=== PATIENT | male | born 1940 | race Caucasian/White ===

== ENCOUNTER 2016-05-24 07:18 | Day surgery (SDC) ==
[2016-05-18 14:41] LABS: HEMATOCRIT 34.6 % (42.0-52.0); HEMOGLOBIN 11.5 g/dL (14.0-18.0); MCH 31.4 PG (27-31); MCHC 33.2 g/dL (33-37); MCV 94.5 FL (81-99); MPV 11.5 FL (7.4-10.4); RBC 3.66 XMIL (4.7-6.1)
[2016-05-18 14:59] LABS: CALCIUM 8.6 mg/dL (8.8-10.2); POTASSIUM 3.9 mmol/L (3.5-5.1)
[2016-05-24] MEDS ORDERED: PEPCID ONE (07:35)
[2016-05-24] MEDS ORDERED: KEFZOL 1 GM/D5W 50 ML ONE (07:35)
[2016-05-24] MEDS ORDERED: REGLAN ONE (07:35)
[2016-05-24] MEDS ORDERED: LR 1,000 ML ONE (07:35)
[2016-05-24] MEDS ORDERED: NEOSPORIN G.U. IRRIGANT ONE (08:38)
[2016-05-24] MEDS ORDERED: FENTANYL ONE (09:59)
[2016-05-24] MEDS ORDERED: DIPRIVAN 1% ONE (10:00)
[2016-05-24] MEDS ORDERED: MORPHINE ONE ×2 (10:04→10:09)
[2016-05-24] MEDS ORDERED: NORCO-10 ONE (10:31)
[2016-05-24 10:52] VITALS: BP 161/86
[2016-05-24] MEDS ORDERED: XYLOCAINE-MPF 2% ONE (11:01)
--- NOTE | 2016-05-24 11:15 | OPERATIVE NOTE ---
PROCEDURE DATE: 05/24/2016 POSTOPERATIVE DIAGNOSIS: History of stage T1 urothelial carcinoma and renal insufficiency. POSTOPERATIVE DIAGNOSES: 1. History of stage T1 urothelial carcinoma and renal insufficiency. 2. Bilateral distal ureteral strictures. PROCEDURE PERFORMED: Cystoscopic exam, bilateral retrograde ureteropyelograms, placement of bilateral double-J stents, cold cup biopsies of the bladder, and transurethral resection of the bladder tumor site (about 3 cm in diameter). SURGEON: Alexsander Shepard MD ANESTHESIA: General via laryngeal mask. FINDINGS: Cystoscopic exam: Urethra--greater than 21 Icelandic, without stricture. Prostate-- coapting lateral lobes, elevated bladder neck, length approximately 4.5 cm. Bladder--normal ureteral orifices bilaterally. The previously resected tumor site was noted. There was thin, friable mucosa overlying the previously resected site. There was a red area on the right upper posterior wall. Left retrograde ureteropyelogram--distal ureteral stricture with significant hydroureteronephrosis proximal to this. No other filling defects. The strictured area was just above the ureterovesical junction and was extrinsic. Right side, right distal ureteral stricture just above the ureterovesical junction. There were no filling defects proximal to this, but there was significant hydroureteronephrosis. His bilateral retrograde pyelograms were normal in March 2016. Rectal exam reveals a prostate of about 40 g with a firm area on the right side, no change from previous exams. INDICATIONS FOR PROCEDURE: This 75-year-old male has a history of hematuria. Evaluation revealed a large papillary tumor on the right mid posterolateral wall. This was resected in March 2016. He was scheduled for repeat biopsies of the tumor base but had other medical issues and had to reschedule. DESCRIPTION OF PROCEDURE: After informed consent was obtained from the patient and family and him receiving IV antibiotics, he was taken the main OR cystoscopy room and placed in the supine position. General anesthesia via laryngeal mask was achieved. He was then placed in a low lithotomy position and prepped and draped in the usual sterile fashion for cystoscopic exam. A 21- Icelandic sheath cystoscope was passed through the patient's urethra and prostate into the bladder with findings noted above. An 8-Icelandic cone-tip catheter was passed through the cystoscope and engaged in the left ureteral orifice. Contrast would not go up into the ureter. There was significant J hooking of the ureters. A 0.035-inch ZIPwire was passed through the cystoscope and engaged in the left ureteral orifice but would not advanced up the ureter. A 5-Icelandic open-ended ureteral catheter was passed over the ZIPwire and into the ureter and was able to be pushed past the strictured area and advanced up into the ureter. Contrast was injected. Again, no filling defects were seen, just hydroureteronephrosis. A 6-Icelandic, 24 cm double-J stent was passed over the ZIPwire and up into the kidney. The renal end was verified by fluoroscopic exam, bladder end directly visualized. The stent removal string was removed. The right side was accomplished similarly, except a 22 cm length stent was used. The cystoscope was removed. The cold cup biopsy forceps were placed and cold cup biopsy of the tumor base was obtained. A cold cup biopsy of the red area on the right upper posterior wall and a random biopsy was taken from the left mid posterior wall. These were sent to Pathology in separate containers. The cystoscope was removed. A 24-Icelandic continuous flow resectoscope sheath was placed. The thin Gyrus loop electrode was placed. Hemostasis was achieved from the cold cup biopsy sites and the tumor bed was resected. This was about 3 cm in diameter. The tumor chips were sent to Pathology in their own container. The bladder was drained and reexpanded. The bladder was inspected. No bleeding areas were seen. The double-J stents were in good position. The bladder was drained. The cystoscope was removed. Rectal exam was performed. He tolerated the procedure well. Estimated blood loss was 2 mL. He was taken to the recovery room in good condition.
--- NOTE | 2016-05-24 11:15 | Diag Imaging Result Document ---
PROCEDURE NAME: RETROGRADES 2 OR 3 FILMS - 05/24/2016 BILATERAL URETEROGRAMS, 05/24/2016: COMPARISON: 03/22/2016. FINDINGS: Injection of both ureters demonstrates some hydroureteronephrosis to the level of the urinary bladder. Bilateral nephroureteral stents were placed in normal position. Total fluoroscopy time was 1 minute 24 seconds. Forty-nine images were submitted. IMPRESSION: No evidence of complication.
== END 2016-05-24 11:06 | disposition home or self-care (01) ==
LOC: OPS 07:18
PROVIDERS: ATTEND Urology
DX: C67.8 Malignant neoplasm of overlapping sites of bladder (principal); C68.0 Malignant neoplasm of urethra; N13.5 Crossing vessel and stricture of ureter without hydronephrosis; I11.0 Hypertensive heart disease with heart failure; I50.9 Heart failure, unspecified; I25.10 Atherosclerotic heart disease of native coronary artery without angina pectoris; N40.2 Nodular prostate without lower urinary tract symptoms; J44.9 Chronic obstructive pulmonary disease, unspecified; K21.9 Gastro-esophageal reflux disease without esophagitis; N40.1 Benign prostatic hyperplasia with lower urinary tract symptoms; R31.0 Gross hematuria; N39.43 Post-void dribbling; F17.210 Nicotine dependence, cigarettes, uncomplicated; R35.0 Frequency of micturition; R31.29 Other microscopic hematuria; N28.9 Disorder of kidney and ureter, unspecified; C67.9 Malignant neoplasm of bladder, unspecified; R39.15 Urgency of urination; M10.9 Gout, unspecified; M19.90 Unspecified osteoarthritis, unspecified site; G62.9 Polyneuropathy, unspecified; Z95.1 Presence of aortocoronary bypass graft; Z79.899 Other long term (current) drug therapy; Z80.42 Family history of malignant neoplasm of prostate; Z79.82 Long term (current) use of aspirin
CPT/HCPCS: 74420; 80048; 85027; 88305; C2617; J0690; J2270; J3010; J7120; Q9966